=== PATIENT | male | born 1995 | race Caucasian/White ===

== ENCOUNTER 2018-11-25 17:35 | Emergency (ER) | payer SELFPAY ==
--- NOTE | 2018-11-25 17:38 | EDM.PDOC ---
ED HPI GENERAL MEDICAL PROBLEM - General Chief Complaint: General Stated Complaint: MEDICAL CLEARANCE Time Seen by Provider: 11/25/18 17:38 Source of Information: Reports: Patient History Limitations: Reports: No Limitations - History of Present Illness INITIAL COMMENTS - FREE TEXT/NARRATIVE: HISTORY AND PHYSICAL: History of present illness: Patient is a 23-year-old male who is brought to the emergency room by law enforcement for medical clearance. Patient had a few drinks prior to arrival but offers no current complaints or concerns. Patient denies any fever, chills, headache, change in vision, syncope or near syncope. Denies any chest pain, back pain, shortness of breath or cough. Denies any abdominal pain, nausea, vomiting, diarrhea, constipation or dysuria. Has not noted any blood in urine or stool. Patient has been eating and drinking appropriately. Review of systems: As per history of present illness and below otherwise all systems reviewed and negative. Past medical history: As per history of present illness and as reviewed below otherwise noncontributory. Surgical history: As per history of present illness and as reviewed below otherwise noncontributory. Social history: See social history for further information Family history: As per history of present illness and as reviewed below otherwise noncontributory. Physical exam: General: Well-developed and well-nourished 23-year-old male. Alert and oriented. Nontoxic appearing and in no acute distress. HEENT: Atraumatic, normocephalic, pupils equal and reactive bilaterally, negative for conjunctival pallor or scleral icterus, mucous membranes moist, TMs normal bilaterally, throat clear, neck supple, nontender, trachea midline. No drooling or trismus noted. No meningeal signs. No hot potato voice noted. Lungs: Clear to auscultation, breath sounds equal bilaterally, chest nontender. Heart: S1S2, regular rate and rhythm without overt murmur Abdomen: Soft, nondistended, nontender. Negative for masses or hepatosplenomegaly. Negative for costovertebral tenderness. Pelvis: Stable nontender. Genitourinary: Deferred. Rectal: Deferred. Skin: Intact, warm, dry. No lesions or rashes noted. Extremities: Atraumatic, moves all extremities per self without difficulty or deficits, negative for cords or calf pain. Neurovascular unremarkable. Neuro: Awake, alert, oriented. Cranial nerves II through XII unremarkable. Cerebellum unremarkable. Motor and sensory unremarkable throughout. Exam nonfocal. Notes: Patient is alert and oriented, answering questions appropriately. He declines the need for any diagnostics. He is agreeable for a bedside glucose. Vital signs are stable and have been reviewed by me. Supportive care measures were reviewed and discussed. Voices understanding and is agreeable to plan of care. Denies any further questions or concerns at this time. Diagnostics: Bedside glucose Therapeutics: None Prescription: None Impression: Encounter for medical screening exam Plan: 1. Stop drinking alcohol 2. Tylenol and/or ibuprofen as needed for pain management. 3. Follow-up with your primary care provider as needed. Return to the ED as needed and as discussed. Definitive disposition and diagnosis as appropriate pending reevaluation and review of above. - Related Data Allergies Allergy/AdvReac Type Severity Reaction Status Date / Time No Known Allergies Allergy Verified 11/25/18 17:41 Home Meds: Home Meds . [No Known Home Meds] 03/05/14 [History] ED ROS GENERAL - Review of Systems Review Of Systems: ROS reveals no pertinent complaints other than HPI. ED EXAM, GENERAL - Physical Exam Exam: See Below (See dictation) Course - Vital Signs Last Recorded V/S: Last Vital Signs Temp 97.1 F 11/25/18 17:41 Pulse 118 H 11/25/18 17:41 Resp 18 11/25/18 17:41 BP 126/84 11/25/18 17:41 Pulse Ox 99 11/25/18 17:41 Departure - Departure Time of Disposition: 17:49 Disposition: Home, Self-Care 01 Clinical Impression: Encounter for medical screening examination - Discharge Information Forms: ED Department Discharge Additional Instructions: The following information is given to patients seen in the emergency department who are being discharged to home. This information is to outline your options for follow-up care. We provide all patients seen in our emergency department with a follow-up referral. The need for follow-up, as well as the timing and circumstances, are variable depending upon the specifics of your emergency department visit. If you don't have a primary care physician on staff, we will provide you with a referral. We always advise you to contact your personal physician following an emergency department visit to inform them of the circumstance of the visit and for follow-up with them and/or the need for any referrals to a consulting specialist. The emergency department will also refer you to a specialist when appropriate. This referral assures that you have the opportunity for follow-up care with a specialist. All of these measure are taken in an effort to provide you with optimal care, which includes your follow-up. Under all circumstances we always encourage you to contact your private physician who remains a resource for coordinating your care. When calling for follow-up care, please make the office aware that this follow-up is from your recent emergency room visit. If for any reason you are refused follow-up, please contact the [facility] Emergency Department at and asked to speak to the emergency department charge nurse. [facility] [address] [place] [id number] [id number] 1. Stop drinking alcohol 2. Tylenol and/or ibuprofen as needed for pain management. 3. Follow-up with your primary care provider as needed. Return to the ED as needed and as discussed.
== END 2018-11-25 18:02 | disposition home or self-care (01) ==
LOC: MW.ED 17:35
DX: Z02.89 Encounter for other administrative examinations (principal)
CPT/HCPCS: 82962; 99282; 99283

== ENCOUNTER 2023-11-27 19:41 | Emergency (ER) | payer SELFPAY ==
[2023-11-27] MEDS: Diphtheria,Pertussis(Acell),Tetanus Vaccine 0.5 ML Syringe IM ONE (20:06)
[2023-11-27] MEDS: Acetaminophen/HYDROcodone 325-5 MG Tab PO ONE (20:06)
[2023-11-27] MEDS: Bacitracin Oint 1 GM U/D Packet TOP ONE (21:03)
== END 2023-11-27 21:37 | disposition home or self-care (01) ==
LOC: MW.ED 19:41
DX: S52.042A Displaced fracture of coronoid process of left ulna, initial encounter for closed fracture (principal); Z23 Encounter for immunization; Z75.8 Other problems related to medical facilities and other health care; V86.56XA Driver of dirt bike or motor/cross bike injured in nontraffic accident, initial encounter
CPT/HCPCS: 29105; 73080; 90471; 90715; 99284; A9270; 99283

== ENCOUNTER 2023-11-28 09:41 | Day surgery (SDC) | payer SELFPAY ==
[2023-11-28] MEDS: Ondansetron 4 MG/2 ML SDV IVPUSH ONE (10:09)
[2023-11-28] MEDS: Morphine 2 MG/ML SYRINGE IVPUSH ONE (10:09)
[2023-11-28] MEDS: Sodium Chloride 0.9% 10 ML Syringe FLUSH PRN (10:10)
[2023-11-28] MEDS: Sodium Chloride 0.9% 2.5 ML Syringe FLUSH PRN (10:10)
[2023-11-28 10:18] LABS: BASOPHILS ABSOLUTE AUTO 0.03 K/uL (0.00-0.20); BASOPHILS PERCENT AUTO 0.2 % (0.0-1.0); EOSINOPHILS ABSOLUTE AUTO 0.09 K/uL (0.00-0.45); EOSINOPHILS PERCENT AUTO 0.7 % (0.0-6.0); HEMOGLOBIN 13.7 g/dL (14.0-18.0); IMMATURE GRAN ABSOLUTE AUTO 0.03 K/uL (0.00-0.05); IMMATURE GRAN PERCENT AUTO 0.2 % (0.0-0.4); LYMPHOCYTES ABSOLUTE AUTO 1.33 K/uL (1.00-4.80); LYMPHOCYTES PERCENT AUTO 10.6 % (24.0-44.0); MEAN CORPUSCULAR HEMOGLOBIN 29.5 pg (28.0-32.0); MEAN CORPUSCULAR HGB CONC 34.3 g/dL (32.0-36.0); MEAN CORPUSCULAR VOLUME 86.2 fL (83.0-99.0); MEAN PLATELET VOLUME 9.7 fL (9.4-12.4); MONOCYTES ABSOLUTE AUTO 1.07 K/uL (0.00-0.80); MONOCYTES PERCENT AUTO 8.5 % (0.0-8.0); NEUTROPHILS ABSOLUTE AUTO 10.05 K/uL (1.80-7.70); NEUTROPHILS PERCENT AUTO 79.8 % (41.0-71.0); PLATELET COUNT,PLT 216 K/uL (150-400); RED BLOOD CELL COUNT 4.64 M/uL (4.52-5.90)
[2023-11-28 10:39] LABS: CALCIUM 8.4 mg/dL (8.5-10.1); CARBON DIOXIDE,CO2 23.1 mmol/L (21.0-32.0); CREATININE 1.2 mg/dL (0.8-1.3); EST CRCL DRUG DOSING (CG) 92.94 mL/min; POTASSIUM,K 3.8 mmol/L (3.5-5.1)
[2023-11-28] MEDS: Morphine 4 MG/ML Syringe IVPUSH ONE (10:40)
[2023-11-28] MEDS ORDERED: Metoclopramide 10 MG/2 ML SDV IVPUSH ONE (13:21)
[2023-11-28] MEDS ORDERED: Ondansetron 4 MG/2 ML SDV IVPUSH ONE (13:21)
[2023-11-28] MEDS ORDERED: fentaNYL 100 MCG/2 ML SDV IVPUSH ONE (13:22)
[2023-11-28] MEDS ORDERED: Naloxone 0.4 MG/ML SDV IVPUSH PRN ×2 (13:22→13:52)
[2023-11-28] MEDS ORDERED: Lidocaine 2% 5 ML SDV ONE (13:23)
[2023-11-28] MEDS ORDERED: Bupivacaine 0.5% 30 ML SDV ONE (13:23)
[2023-11-28] MEDS ORDERED: Morphine 2 MG/ML SYRINGE IVPUSH PRN (13:52)
[2023-11-28] MEDS ORDERED: HYDROmorphone 1 MG/ML Syringe IVPUSH PRN (13:52)
[2023-11-28] MEDS ORDERED: fentaNYL 50 MCG/ML SDV IVPUSH PRN (13:52)
[2023-11-28] MEDS ORDERED: Albuterol 0.083% 2.5 MG/3 ML Neb Soln NEB PRN (13:52)
[2023-11-28] MEDS ORDERED: droPERidol 5 MG/2 ML SDV IVPUSH PRN (13:52)
[2023-11-28] MEDS ORDERED: Ondansetron 4 MG/2 ML SDV IVPUSH PRN (13:52)
[2023-11-28] MEDS ORDERED: Metoclopramide 10 MG/2 ML SDV IVPUSH PRN (13:52)
[2023-11-28] MEDS ORDERED: dexmedeTOMIDine HCl 200 MCG/2 ML SDV ONE (13:55)
[2023-11-28] MEDS: Lactated Ringers 1,000 ML IV SCH (14:17)
[2023-11-28] MEDS ORDERED: Midazolam 1 MG/ML 2 ML SDV ONE (15:31)
== END 2023-11-28 17:45 | disposition home or self-care (01) ==
LOC: MW.ED 09:41 → MW.SDS 12:55 → MW.MS 16:23 → MW.SDS 17:45
PROVIDERS: ATTEND Orthopaedic Surgery
DX: S53.125A Posterior dislocation of left ulnohumeral joint, initial encounter (principal); X58.XXXA Exposure to other specified factors, initial encounter
CPT/HCPCS: 24600; 36415; 73080; 73562; 76000; 80048; 85025; 96374; 96375; 99284; J0665; J2250; J2270; J2405; J3490; J7120; 01730; 64415; 99283

== ENCOUNTER 2024-06-19 13:44 | Emergency (ER) | payer SELFPAY ==
[2024-06-19] MEDS: Bacitracin Oint 1 GM U/D Packet TOP ONE (15:19)
== END 2024-06-19 15:43 | disposition home or self-care (01) ==
LOC: MW.ED 13:44
DX: T23.232A Burn of second degree of multiple left fingers (nail), not including thumb, initial encounter (principal); Z75.8 Other problems related to medical facilities and other health care; Z79.899 Other long term (current) drug therapy; X03.0XXA Exposure to flames in controlled fire, not in building or structure, initial encounter
CPT/HCPCS: 16020; 99283-25